=== PATIENT | male | born 1975 | race Caucasian/White ===

== ENCOUNTER 2024-03-03 07:39 | Day surgery (SDC) | payer BC ==
[~2024-03-03 07:39] MED LIST: Sodium Chloride 0.9% 10 ML Syringe FLUSH PRN; Sodium Chloride 0.9% 2.5 ML Syringe FLUSH PRN; Sodium Chloride 0.9% 20 ML SDV IV PRN
[2024-03-03] MEDS: Lactated Ringers 1,000 ML IV SCH (07:59)
[2024-03-03] MEDS ORDERED: Lidocaine 2% 5 ML SDV ONE (08:48)
[2024-03-03] MEDS ORDERED: Propofol 200 MG/20 ML SDV ONE ×3 (08:48→09:47)
[2024-03-03] MEDS ORDERED: Midazolam 1 MG/ML 2 ML SDV ONE (09:25)
[2024-03-03] MEDS ORDERED: fentaNYL 100 MCG/2 ML SDV ONE (09:32)
[2024-03-03 10:38] VITALS: BP 107/75; PULSE 97
== END 2024-03-03 10:45 | disposition home or self-care (01) ==
LOC: MW.SDS 07:39
PROVIDERS: ATTEND Surgery
DX: Z12.11 Encounter for screening for malignant neoplasm of colon (principal); R19.5 Other fecal abnormalities; D12.5 Benign neoplasm of sigmoid colon; I10 Essential (primary) hypertension; E11.9 Type 2 diabetes mellitus without complications; E78.00 Pure hypercholesterolemia, unspecified; Z87.891 Personal history of nicotine dependence; Z79.85 Long-term (current) use of injectable non-insulin antidiabetic drugs; Z79.899 Other long term (current) drug therapy; Z79.84 Long term (current) use of oral hypoglycemic drugs
CPT/HCPCS: 45380; 45385; J2250; J2704; J3010; J7120; 00811; J3490